=== PATIENT | male | born 1970 | race Caucasian/White ===

== ENCOUNTER 2017-04-01 08:04 | Day surgery (SDC) | payer BC ==
[~2017-04-01] VITALS: Ht 180.3 cm; Wt 112.9 kg
[~2017-04-01 08:04] MED LIST: ALEVE220 MG PO; CARDURA1 MG PO; FISH OIL 1,0001 CA1 PO; KEFLEX500 MG PO; LIPITOR40 MG PO; NIASPAN500 MG PO; NORVASC5 MG PO
[2017-04-01 08:44] LABS: HEMATOCRIT 44.8 % (42.0-54.0); HEMOGLOBIN 14.5 g/dL (13.5-17.5); MCHC 32.4 g/dL (31.0-37.0); MCV 92.8 fL (80.0-100.0); MEAN PLATELET VOLUME 10.1 fL (7.4-10.4); RBC 4.83 10x6/uL (4.20-6.10); RDW 13.5 % (11.5-14.5)
[2017-04-01 09:17] VITALS: BP 146/77; Ht 180.3 cm; Wt 112.9 kg
[2017-04-01] MEDS ORDERED: BACTRIM DS TABL1 TAB PO (11:15)
[2017-04-01] MEDS ORDERED: HYDROCODON-ACE1 EAC7 PO (11:15)
--- NOTE | 2017-04-01 12:37 | NUR ---
1225 PIV IN RT HAND REMOVED W/CATHETER TIP INTACT. PT DC TEACHING AND PRSCRIPTS GIVEN AND EXPLAINED TO CALL DR OFFICE AFTER 1300 FOR A FOLLOW UP APPT. PT F/U. PT REFUSED TO BE DC VIA WC REFERRED TO WALK OUT W/PARENTS.
--- NOTE | 2017-04-02 00:07 | OP ---
PATIENT NAME: MADHURI LIANG MEDICAL RECORD: [id number] :70 LOCATION:D.OPS ADMISSION DATE: SURGEON: SUREKHA BURCH MD DATE OF OPERATION: 04/01/2017 SURGEON: Surekha Burch MD. PREOPERATIVE DIAGNOSIS: Epidermoid cyst of the left upper back. POSTOPERATIVE DIAGNOSIS: Infected multiloculated abscess of left upper back. PROCEDURES PERFORMED: Incision and drainage of complex multiloculated skin and subcutaneous abscess of the left upper back, 10 cm x 6 cm x 3 cm. SPECIMENS: 1. Aerobic and anaerobic cultures. 2. Tissue culture. COMPLICATIONS: None. Case was grossly contaminated. ESTIMATED BLOOD LOSS: 30 cc. ANESTHESIA: General. OPERATIVE COURSE: After consent was obtained, the patient was taken to the operating room and placed in the supine position on the operating table. Next, general anesthesia was given via endotracheal intubation after a timeout was performed to confirm the correct patient and procedure. The patient was placed in left lateral decubitus position. The left upper back was prepped and draped in typical sterile fashion. A small skin incision was made with a 15-blade scalpel. The dermis was dissected. Immediately, upon entering into the dermis, purulent fluid began emanating from the wound. At this time, anaerobic and aerobic cultures were taken and sent. The remaining abscess cavity was entered. Approximately 70 cc of chocolate purulent fluid was expressed from the wound. The wound was then copiously irrigated and suctioned. There were multiple loculations within the abscess cavity that were broken down with finger dissection. Again, the wound was irrigated and suctioned. The wound was then packed with Kerlix soaked in iodoform and covered with sterile gauze dressings. The abscess cavity measured approximately 10 cm in width x 6 cm in height and 3 cm in depth. A small quantity of tissue was sent for culture. At the end of the case, all needle and instrument counts were correct. No complications occurred. The patient was extubated and transferred to the PACU in stable condition. TRANSINT:[id number] Voice Confirmation ID: [id number] DOCUMENT ID: [id number] OPERATIVE REPORT [id number] MADHURI LIANG SUREKHA BURCH MD at 0007 CC: [id number] DICTATION DATE: 04/01/17 1121 BUSINESS DEVELOPMENT OFFICER: 04/01/17 1324 [facility] 04/01/17 [facility] [address] [id number]
== END 2017-04-01 12:27 | disposition home or self-care (01) ==
LOC: D.OPS 08:04 → D.PAN 10:30 → D.OPS 12:27
PROVIDERS: Anesthesiology
DX: L72.0 Epidermal cyst (principal); F17.200 Nicotine dependence, unspecified, uncomplicated; G47.30 Sleep apnea, unspecified; I10 Essential (primary) hypertension; Z01.812 Encounter for preprocedural laboratory examination

== ENCOUNTER → 2019-08-24 13:30 | Outpatient (CLI) | payer BC ==
[2017-04-01 09:17] VITALS: BMI 34.8
[~2019-08-24 13:30] MED LIST changes: +BACTRIM DS TABL1 TAB PO; +HYDROCODON-ACE1 EAC7 PO
== END | disposition home or self-care (01) ==
LOC: D.US 13:30
PROVIDERS: ATTEND Family Medicine
DX: S30.22XA Contusion of scrotum and testes, initial encounter (principal)